=== PATIENT | female | born 1990 | race Two or more races ===

== ENCOUNTER 2022-10-04 22:58 | Inpatient (IN) | payer MEDICAID ==
[2022-10-05] MEDS ORDERED: Nalbuphine 10 MG/0.5 ML Syringe IVPUSH PRN (00:08)
[2022-10-05] MEDS ORDERED: Ondansetron 4 MG/2 ML SDV IVPUSH PRN (00:08)
[2022-10-05] MEDS ORDERED: Sodium Chloride 0.9% 10 ML Syringe FLUSH PRN (00:08)
[2022-10-05] MEDS ORDERED: Oxytocin/Lactated Ringers 10 UNIT/1,000 ML BAG IV SCH (00:15)
[2022-10-05] MEDS ORDERED: Lactated Ringers 1,000 ML IV SCH (00:15)
[2022-10-05] MEDS ORDERED: Ibuprofen 600 MG Tab PO ONE (03:53)
[2022-10-05] MEDS ORDERED: Witch Hazel Medicated Pads 40/Jar TOP PRN (03:59)
[2022-10-05] MEDS ORDERED: Benzocaine/Menthol 20%-0.5% Spray 78 GM Cannister TOP PRN (03:59)
[2022-10-05] MEDS ORDERED: Docusate Sodium 100 MG Cap PO PRN (03:59)
[2022-10-05] MEDS: Ibuprofen 600 MG Tab PO PRN ×3 (04:02→20:04)
[2022-10-05] MEDS: Acetaminophen 325 MG Tab PO PRN ×2 (04:57→20:03)
[2022-10-05] MEDS ORDERED: Sodium Chloride 0.9% 10 ML Syringe FLUSH SCH (09:00)
[2022-10-06] MEDS: Ibuprofen 600 MG Tab PO PRN (03:34)
== END 2022-10-06 10:30 | disposition home or self-care (01) | DRG 807 ==
LOC: JD.OBCHECK 22:58 → JD.OB 23:00 → JD.OBCHECK 10-05 00:07 → JD.OB 10-05 00:08 → OBSVTOIN 10-05 03:06 → JD.OB 10-05 03:07
PROVIDERS: ADMIT Obstetrics & Gynecology; ATTEND Obstetrics & Gynecology
PROC: 10E0XZZ Delivery of Products of Conception, External Approach (ICD-10-PCS; principal; 2022-10-05)
PROC: 10907ZC Drainage of Amniotic Fluid, Therapeutic from Products of Conception, Via Natural or Artificial Opening (ICD-10-PCS; 2022-10-05)
PROC: 0HQ9XZZ Repair Perineum Skin, External Approach (ICD-10-PCS; 2022-10-05)
DX: O70.0 First degree perineal laceration during delivery (principal); Z3A.39 39 weeks gestation of pregnancy; Z37.0 Single live birth
CPT/HCPCS: 36415; 59025; 59409; 85025; 86592; A9270-GY; J2590